=== PATIENT | female | born 1990 | race Caucasian/White ===

== ENCOUNTER 2017-05-21 14:16 | Emergency (ER) | payer OTHER, MEDICAID ==
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
[2017-05-21 15:19] VITALS: BMI 87.9
[2017-05-21 15:20] VITALS: RESP 18; TEMP 98.2; O2SAT 98
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
[2017-05-21 19:21] VITALS: BP 109/65; PULSE 70
== END 2017-05-21 18:05 | disposition home or self-care (01) ==
LOC: ED 14:16
DX: Z04.1 Encounter for examination and observation following transport accident (principal); M62.830 Muscle spasm of back